=== PATIENT | male | born 1960 | race Caucasian/White ===

== ENCOUNTER 2019-02-08 00:27 | Emergency (ER) | payer OTHER ==
[~2019-02-08] VITALS: Ht 175.3 cm; Wt 77.1 kg
--- NOTE | 2019-02-08 00:50 | NUR ---
BIBSELF C/O R SHOULDER PAIN S/P TRIP AND FALL ON STAIRS. -LOC, NOTED DEFORMITTY, TO ER BED 3, AWAITING MED EVAL
[2019-02-08] MEDS ORDERED: PROPOFOL 20 ML IV ONE (01:09)
[2019-02-08] MEDS ORDERED: IV NS 0.9% 1,000 ML BAG IV ONE (02:00)
[2019-02-08] MEDS ORDERED: PROPOFOL 200 MG/20 ML VIAL IV ONE (02:30)
--- NOTE | 2019-02-08 02:55 | NUR ---
Patient discharged to home in stable condition. Written and verbal after care instructions given, and instructed not to drive, cd- copy of xray provided. Patient verbalizes understanding of instruction.
[2019-02-08 02:57] VITALS: BP 134/66
== END 2019-02-08 02:57 | disposition home or self-care (01) ==
LOC: ER 00:31
DX: S43.084A Other dislocation of right shoulder joint, initial encounter (principal); Z98.890 Other specified postprocedural states; Z88.0 Allergy status to penicillin; Z88.8 Allergy status to other drugs, medicaments and biological substances; W01.0XXA Fall on same level from slipping, tripping and stumbling without subsequent striking against object, initial encounter; Y93.89 Activity, other specified; Y92.89 Other specified places as the place of occurrence of the external cause; Y99.8 Other external cause status
CPT/HCPCS: 23650; 73030 ×2; 99152; 99285; J2704; J7030 ×3; G0500